=== PATIENT | male | born 1980 | race Caucasian/White ===

== ENCOUNTER 2016-12-20 12:27 | Inpatient (IN) | payer BC, OTHER ==
[~2016-12-20] VITALS: Ht 193 cm; Wt 90.7 kg
--- NOTE | 2016-12-20 14:30 | NUR ---
PRE ASSESSMENT Pt 36 y/o male in admission office. Pt came from home. Pt alert and oriented to name, place, and time. Perrla. skin warm and dry to touch. Respirations even and unlabored. Bilateral hand tremors noted slightly. Pt denies any history of sz. Pt was seen by MD. Skin clear. Pt able to sign consent. Explained unit rules to pt with acknowledgement. VS wnl se=926/76 p=98 t=98.0 r=18 o2=97%@ra and with no c/o pain noted.
[2016-12-20] MEDS ORDERED: MAGNESIUM HYDROXIDE 30 ML LIQUID UDC PO PRN (14:45)
[2016-12-20] MEDS ORDERED: diphenhydrAMINE 50 MG CAPSULE PO PRN (14:45)
[2016-12-20] MEDS ORDERED: LOPERAMIDE HCL 2 MG CAPSULE PO PRN ×2 (14:45)
[2016-12-20] MEDS ORDERED: ONDANSETRON 4 MG/2 ML VIAL IM PRN (14:45)
[2016-12-20] MEDS ORDERED: ACETAMINOPHEN 325 MG TABLET PO PRN (14:45)
[2016-12-20] MEDS ORDERED: LORAZEPAM 2 MG/1 ML VIAL IM PRN (14:45)
[2016-12-20] MEDS ORDERED: CLONIDINE HCL 0.1 MG TABLET PO PRN (14:45)
[2016-12-20] MEDS ORDERED: LORAZEPAM 1 MG TABLET PO PRN ×2 (14:45)
[2016-12-20] MEDS ORDERED: MAG HYDROX/AL HYDROX/SIMETH 30 ML LIQUID UDC PO PRN (14:45)
[2016-12-20] MEDS ORDERED: DICYCLOMINE HCL 20 MG TABLET PO PRN (14:45)
[2016-12-20] MEDS ORDERED: MIRALAX 17 GM POWD.PACK PO PRN (14:45)
--- NOTE | 2016-12-20 14:45 | NUR ---
ADMISSION Pt 36 y/o male admitted for etoh dependence. Pt came from home. Pt alert and oriented to name, place, and time. Perrla. skin warm and dry to touch. Respirations even and unlabored. Bilateral hand tremors noted slightly. Pt denies any history of sz. Pt was seen by . Skin clean with some callous on bilateral fingers noted. VS wnl gb=248/76 p=98 t=98.0 r=18 o2=97%@ra and with no c/o pain noted. Oriented pt to room and unit. Bed on lowest position with side rails x2 up for safety. Call light within reach. No distress noted at this time. Initial ciwa=3. substance history - ETOH vodka ( mixed) oral 5glasses daily x1 year. Last drink 12/19/16 and had 5 glasses. total 17 years - marijuana smokes and uses occassionally twice a month. Last use 11/26/16 and smoked once. medical history PTSD , HTN, and pt denies any sz history treatment history Pt denies any treatment history.
[2016-12-20] MEDS ORDERED: THIAMINE HCL 200 MG/2 ML VIAL IM ONE (16:00)
[2016-12-20] MEDS: ONDANSETRON ODT 4 MG TAB.RAPDIS SL PRN (16:02)
--- NOTE | 2016-12-20 16:12 | NUR ---
PRN Pt states feels nauseous. Zofran ODT prn per MD order given and tolerated well.
--- NOTE | 2016-12-20 16:13 | NUR ---
PRN Pt states has stomach cramps. Bentyl po prn per MD order given and tolerated well.
[2016-12-20 16:29] LABS: *AMPHETAMINE, URINE NEGATIVE (NEGATIVE); *BARBITURATE, URINE NEGATIVE (NEGATIVE); *CANNABINOID, URINE POSITIVE (NEGATIVE); *COCCAINE, URINE NEGATIVE (NEGATIVE); *OPIATE, URINE NEGATIVE (NEGATIVE); *PHENCYCLIDINE SCREEN,URINE NEGATIVE (NEGATIVE)
[2016-12-20 17:00] VITALS: BP 116/96
--- NOTE | 2016-12-20 17:12 | NUR ---
PRN EVAL Pt states does not feel nauseated at this time.
--- NOTE | 2016-12-20 17:13 | NUR ---
PRN Pt states does not have stomach cramps. Addendum: 12/20/16 at 1739 by VEGA LAZO RN title correction PRAda DUMONT
[2016-12-20 17:47] LABS: EOSINOPHILS % (AUTO) 1.5 % (0.0-7.0); HEMATOCRIT 25.2 % (40-50); HEMOGLOBIN 8.3 G/DL (14.0-18.0); LYMPHOCYTES % (AUTO) 21.6 % (20.5-51.5); MEAN CORPUSCULAR HEMOGLOBIN 33.7 UUG (27.0-31.0); MEAN CORPUSCULAR HGB CONC 33 g/dL (32.0-37.0); MEAN CORPUSCULAR VOLUME 101.9 FL (82.0-92.0); MONOCYTES % (AUTO) 17.5 % (0.0-11.0); NEUTROPHILS % (AUTO) 58.7 % (38.5-71.5); PLATELET COUNT (AUTO) 79 K/UL (150-450); WHITE BLOOD COUNT (AUTO) 6.2 K/UL (4.0-11.2)
[2016-12-20 17:48] LABS: BASOPHILS % (AUTO) 0.7 % (0.0-2.0); EOSINOPHILS # (AUTO) 0.1 K/uL (0.0-0.7); LYMPHOCYTES # (AUTO) 1.3 K/UL (0.8-4.8); MONOCYTES # (AUTO) 1.1 K/UL (0.1-1.30); NEUTROPHILS # (AUTO) 3.7 K/UL (1.8-8.9)
[2016-12-20 17:50] LABS: RED BLOOD CELL COUNT(AUTO) 2.47 MIL/UL (4.7-6.1)
--- NOTE | 2016-12-20 17:51 | NUR ---
DIMA Vidales from lab called with result RBC=2.47. aware.
[2016-12-20 17:53] LABS: BILIRUBIN,TOTAL 4.4 mg/dL (0.2-1.0); CREATININE 0.8 mg/dL (0.6-1.3); MAGNESIUM 1.5 mg/dL (1.8-2.4); POTASSIUM 3.3 mmol/L (3.5-5.1); TOTAL PROTEIN, SERUM 7.5 g/dL (6.4-8.2)
--- NOTE | 2016-12-20 17:55 | NUR ---
LAB French Herrera from lab called with result etoh 0.15%. aware.
[2016-12-20] MEDS ORDERED: POTASSIUM CHLORIDE 20 MEQ TAB.PRT.SR PO ONE (18:00)
[2016-12-20] MEDS ORDERED: MAGNESIUM OXIDE 400 MG TABLET PO ONE (18:00)
[2016-12-20 18:39] LABS: LYMPHOCYTES % (MANUAL) 20 % (20-40); MONOCYTES % (MANUAL) 13 % (2-10); NEUTROPHILS % (MANUAL) 67 % (42-75)
--- NOTE | 2016-12-20 18:43 | NUR ---
END OF SHIFT Pt 36 y/o male admitted for etoh dependence. Pt alert and oriented to name, place, and time. Perrla. Skin warm and dry to touch. Respirations even and unlabored. Bilateral hand tremors noted. Pt observed mostly isolative to room this afternoon. Pt was seen by MD today. Pt medication complaint and tolerated well. No ASE noted. Bed on lowest position with side rails x2 up for safety. Call light within reach. No distress noted at this time.
--- NOTE | 2016-12-20 19:30 | NUR ---
Start of shift Patient is a 36 year old male admitted for ETOH detox today. Patient is a full code on a pescatarian diet, with seasonal allergies. Patient is on fall and seizure precautions. He has past medical history of PTSD, HTN, Portal HTN, TIPS surgery in 2016. Patient is being started on a 4 day Ativan taper. Patient last CIWA 3 at 1600. At change of shift patient in room lying in bed. Stating he is feeling down. Denies SI or HI. Worried regarding physical health. Patient denies current physical complaints or pain. Safety measures in place, call light within good reach. Will continue to monitor.
[2016-12-20 20:00] VITALS: BP 113/60
[2016-12-20] MEDS ORDERED: LORAZEPAM 1 MG TABLET PO SCH (21:00)
[2016-12-21] VITALS: BP 117/75
[2016-12-21 04:00] VITALS: BP 123/71
--- NOTE | 2016-12-21 04:00 | NUR ---
CIWA DEFERRED PATIENT CIWA DEFERRED AT 0400 DUE TO SLEEP
--- NOTE | 2016-12-21 06:57 | NUR ---
End of shift Patient is a 36 year old male admitted for ETOH detox on 12-20-16. Patient is a full code and on a pescatarian diet, he has seasonal allergies. Patient is on fall and seizure precautions. He has past medical history of PTSD, HTN, Portal HTN, and TIPS surgery in 2016. Patient is on a 4 day Ativan taper. Patient was noted to be withdrawn and in room for all of shift. Patient worried about physical health concerns, mainly his liver. Stating he and the MD discussed some serious liver issues yesterday. Denies SI or HI. Vital signs at 2000 BP 113/60, P 68, R 16, SPO2 97% on RA, T 97.8 CIWA 8. VS at 0000 BP 117/75, P 78, R 16, SPO2 97% on RA, 98.6. CIWA 4. VS at 0400 BP 123/71, P 74, R 14, SPO2 97% on RA, T 97.7. CIWA deferred. Intake 850 ml. output 1 void. Slept a total of 8 hours. Safety measures in place, call light within good reach. Will continue to monitor. Report given to AM nurse.
--- NOTE | 2016-12-21 07:30 | NUR ---
START OF SHIFT Pt 36 y/o male admitted for etoh dependence. Pt received in room on bed with eyes closed resting, but easily arousable to name. Pt alert and oriented to name, place, and time. Perrla. Skin warm and dry to touch. Respirations even and unlabored. Bilateral hand tremors noted. It was reported that pt slept for 8 hours last night. Bed on lowest position with side rails x2 up for safety. Call light within reach. No distress noted at this time.
[2016-12-21 08:00] VITALS: BP 119/77
[2016-12-21] MEDS: FOLIC ACID 1 MG TABLET PO SCH (08:18)
[2016-12-21] MEDS: THIAMINE HCL 100 MG TABLET PO SCH (08:18)
[2016-12-21] MEDS: ONDANSETRON ODT 4 MG TAB.RAPDIS SL PRN (08:18)
[2016-12-21] MEDS: MULTIVITAMINS,THERAPEUTIC TABLET PO SCH (08:18)
[2016-12-21] MEDS: LORAZEPAM 1 MG TABLET PO SCH ×3 (08:18→21:13)
--- NOTE | 2016-12-21 08:18 | NUR ---
PRN Pt states feels nauseous. Zofran odt prn per MD order given and tolerated well.
[2016-12-21 08:21] LABS: BASOPHILS # (AUTO) 0.1 K/uL (0.0-8.0); BASOPHILS % (AUTO) 0.7 % (0.0-2.0); EOSINOPHILS # (AUTO) 0.1 K/uL (0.0-0.7); EOSINOPHILS % (AUTO) 1.3 % (0.0-7.0); HEMATOCRIT 25.2 % (40-50); HEMOGLOBIN 8.7 G/DL (14.0-18.0); LYMPHOCYTES # (AUTO) 1.2 K/UL (0.8-4.8); LYMPHOCYTES % (AUTO) 16.7 % (20.5-51.5); MEAN CORPUSCULAR HEMOGLOBIN 35.2 UUG (27.0-31.0); MEAN CORPUSCULAR HGB CONC 35 g/dL (32.0-37.0); NEUTROPHILS # (AUTO) 4.8 K/UL (1.8-8.9); NEUTROPHILS % (AUTO) 67.3 % (38.5-71.5); PLATELET COUNT (AUTO) 74 K/UL (150-450); WHITE BLOOD COUNT (AUTO) 7.2 K/UL (4.0-11.2)
[2016-12-21 08:22] LABS: BILIRUBIN,DIRECT 2.7 mg/dL (0.0-0.2); BILIRUBIN,TOTAL 5.3 mg/dL (0.2-1.0); CREATININE 0.8 mg/dL (0.6-1.3); MAGNESIUM 1.4 mg/dL (1.8-2.4); PHOSPHOROUS 2.8 mg/dL (2.5-4.9); POTASSIUM 4.5 mmol/L (3.5-5.1); TOTAL PROTEIN, SERUM 7.4 g/dL (6.4-8.2)
--- NOTE | 2016-12-21 08:23 | NUR ---
LAB Kiara Le from lab called with results: RBC=2.47. aware.
[2016-12-21 08:26] LABS: RED BLOOD CELL COUNT(AUTO) 2.47 MIL/UL (4.7-6.1)
[2016-12-21] MEDS ORDERED: INFLUENZA VACCINE 2017-2018 0.5 ML DISP.SYRIN IM ONE (09:00)
[2016-12-21] MEDS ORDERED: TUBERCULIN,PURIF.PROT.DERIV. 5 TU/0.1 ML TEST ID ONE (09:00)
[2016-12-21 09:03] LABS: BAND % (MANUAL) 4 % (0-10); EOSINOPHILS % (MANUAL) 2 % (0-8); LYMPHOCYTES % (MANUAL) 17 % (20-40); MONOCYTES % (MANUAL) 13 % (2-10); NEUTROPHILS % (MANUAL) 64 % (42-75)
--- NOTE | 2016-12-21 09:18 | NUR ---
PRN EVAL Pt denies any nausea at this time.
[2016-12-21] MEDS ORDERED: NEBI20TA2 PO (10:10)
[2016-12-21] MEDS ORDERED: ESCI20TA PO (10:10)
[2016-12-21 12:00] VITALS: BP 126/71
[2016-12-21] MEDS ORDERED: hydrALAZINE HCL 50 MG TABLET PO PRN (12:00)
[2016-12-21] MEDS: MAGNESIUM OXIDE 400 MG TABLET PO SCH ×2 (12:38→21:12)
--- NOTE | 2016-12-21 12:50 | NUR ---
therapist prompted client to attend group today, client agreed to attend.
[2016-12-21] MEDS: ESCITALOPRAM OXALATE 10 MG TABLET PO SCH (16:35)
[2016-12-21 16:51] VITALS: BP 108/65
[2016-12-21] MEDS: IBUPROFEN 400 MG TABLET PO PRN (19:07)
--- NOTE | 2016-12-21 19:07 | NUR ---
PRN MEDICATION Patient with complaints of headache 4 out of 10. Ibuprofen 400 mg PO administered at 1907. effect pending. T 99.0 BP 122/74, P 83, R 18, SPO2 97% on RA.
--- NOTE | 2016-12-21 19:24 | NUR ---
Start of shift Patient is a 36 year old male admitted for ETOH detox 12-20-16. Patient is a full code on a pescatarian diet, with seasonal allergies. Patient is on fall and seizure precautions. He has past medical history of PTSD, HTN, Portal HTN, TIPS surgery. Patient is on a 4 day Ativan taper. Patient last CIWA 5 at 1600. At change of shift patient in room lying in bed. Stating he has a headache of a 4 out of 10. Ibuprofen 400mg po PRN administered with effect pending. temp 99.0. Encouraged increased fluids. Denies SI or HI. Safety measures in place, 2 padded side rails up. Bed locked and in lowest position. call light within good reach. Will continue to monitor.
[2016-12-21 20:00] VITALS: BP 122/74
--- NOTE | 2016-12-21 20:31 | NUR ---
Reassessment of patient one hour after administration of PRN ibuprofen 400 mg for headache. Patient with 0 out of 10 pain. T 98.7. Ibuprofen effective.
[2016-12-21] MEDS: PROPRANOLOL HCL 20 MG TABLET PO SCH (21:13)
[2016-12-22] VITALS (7 sets, daily range): BP systolic 116–125; BP diastolic 67–78
--- NOTE | 2016-12-22 04:10 | NUR ---
WA deferred Patient asleep at 0400 [facility] deferred.
--- NOTE | 2016-12-22 06:55 | NUR ---
End of shift Patient is a 36 year old male admitted for ETOH Detox 12-20-16. Patient is a full code on a pescatarian diet, with seasonal allergies. Patient is on fall and seizure precautions. He has past medical history of PTSD, HTN, Portal HTN, TIPS surgery. Patient is on a 4 day Ativan taper. VS: 2000 BP 122/74, P 83, T 99.0, R 18, SPO2 97% on RA. CIWA 7. VS at 0000 BP 120/72, P 77, R 18, SPO2 98% on RA, T 98.6. CIWA 7. VS at 0400 BP 120/69, P 78, SPO2 94% on RA, R 16, T 98.0. CIWA deferred. Patient woke up at 0600 and came to nurses station asking for "bystolic". Patient reported dizziness. Patient states he woke up feeling this way. Gait steady, Vital signs assessed. BP 123/76, P 80, R 18, SPO2 98% on RA, T 98.0 CIWA 13. Charge nurse notified. Patient directed to remain in bed and to get up slowly. No noted falls, nausea or vomiting noted. Tolerating fluids well. Patient is alert and oriented x 4. Intake 1203 ml. Output 3 voids. Slept total of 6 hours. Safety measures in place, 2 padded side rails up. Bed locked and in lowest position. call light within good reach. Will continue to monitor. Report to AM nurse
--- NOTE | 2016-12-22 07:30 | NUR ---
START OF SHIFT NOTE Received report from night nurse, 36 year old male admitted for ETOH dependence. Pt has PMH of PTSD, HTN, Appendectomy. Pt cont on Ativan taper tolerating well. Per endorsement pt received PRN Motrin for headache effective pr night nurse, pt slept for 5 hours. Patient received awake, alert and oriented x4, Educated patient regarding plan of care for the day and medication regimen with good verbal understanding. Safety measures in place. call light with in reach, will continue to monitor.
[2016-12-22 07:50] LABS: BILIRUBIN,DIRECT 3.4 mg/dL (0.0-0.2); BILIRUBIN,TOTAL 6.5 mg/dL (0.2-1.0); CREATININE 0.9 mg/dL (0.6-1.3); MAGNESIUM 1.6 mg/dL (1.8-2.4); PHOSPHOROUS 2.9 mg/dL (2.5-4.9); POTASSIUM 4.3 mmol/L (3.5-5.1); TOTAL PROTEIN, SERUM 7.4 g/dL (6.4-8.2)
[2016-12-22 07:52] LABS: BASOPHILS % (AUTO) 0.6 % (0.0-2.0); EOSINOPHILS # (AUTO) 0.1 K/uL (0.0-0.7); EOSINOPHILS % (AUTO) 1.5 % (0.0-7.0); HEMATOCRIT 24.6 % (40-50); HEMOGLOBIN 8.3 G/DL (14.0-18.0); MEAN CORPUSCULAR HEMOGLOBIN 34.3 UUG (27.0-31.0); MEAN CORPUSCULAR HGB CONC 34 g/dL (32.0-37.0); MEAN CORPUSCULAR VOLUME 101.7 FL (82.0-92.0); MONOCYTES # (AUTO) 0.7 K/UL (0.1-1.30); NEUTROPHILS # (AUTO) 4.8 K/UL (1.8-8.9); NEUTROPHILS % (AUTO) 72.9 % (38.5-71.5); PLATELET COUNT (AUTO) 78 K/UL (150-450); WHITE BLOOD COUNT (AUTO) 6.6 K/UL (4.0-11.2)
[2016-12-22 07:58] LABS: RED BLOOD CELL COUNT(AUTO) 2.42 MIL/UL (4.7-6.1)
--- NOTE | 2016-12-22 08:00 | NUR ---
LAB RESULTS Received call from Lab talked to Nay Fox with results: RBC=2.42. aware NNO at this time.
[2016-12-22 08:20] LABS: BAND % (MANUAL) 10 % (0-10); EOSINOPHILS % (MANUAL) 2 % (0-8); LYMPHOCYTES % (MANUAL) 16 % (20-40); MONOCYTES % (MANUAL) 9 % (2-10); NEUTROPHILS % (MANUAL) 63 % (42-75)
[2016-12-22] MEDS: MULTIVITAMINS,THERAPEUTIC TABLET PO SCH (08:43)
[2016-12-22] MEDS: PROPRANOLOL HCL 20 MG TABLET PO SCH ×2 (08:44→20:37)
[2016-12-22] MEDS: ESCITALOPRAM OXALATE 10 MG TABLET PO SCH (08:44)
[2016-12-22] MEDS: FOLIC ACID 1 MG TABLET PO SCH (08:44)
[2016-12-22] MEDS: LORAZEPAM 1 MG TABLET PO SCH ×3 (08:44→20:39)
[2016-12-22] MEDS: THIAMINE HCL 100 MG TABLET PO SCH (08:44)
[2016-12-22 11:06] LABS: HEPATITIS B SURFACE AG Negative (Negative)
--- NOTE | 2016-12-22 14:49 | NUR ---
Therapist prompted client to attend group today. Client agreed to attend.
[2016-12-22] MEDS ORDERED: LACTULOSE 20 G/30 ML LIQUID UDC PO ONE (15:00)
[2016-12-22] MEDS: MAGNESIUM OXIDE 400 MG TABLET PO SCH ×2 (15:02→20:40)
--- NOTE | 2016-12-22 19:08 | NUR ---
END OF SHIFT NOTE Patient is alert oriented x4. Patient is a 36 year old male admitted ETOH dependence. Patient was placed on 5 day Ativan taper tolerating well. Patient has PMH of PTSD, HTN, Appendectomy. Patient did not received any PRN during shift. Patient was seen by Dr. Paz with new order of Lactulose 20ml Po and magnesium level was Low 1.6 new order of Mag-ox 800mg Po medications were given as ordered tolerated well. Vital signs remained WNL. Patient remained compliant with treatment plan and medication regime. Medications were effective in reducing withdrawal symptoms. All safety measures in place, Call light within reach. Patient endorsed to night nurse in stable condition.
--- NOTE | 2016-12-22 20:00 | NUR ---
START OF SHIFT NOTE RECEIVED REPORT FROM DAY SHIFT NURSE. PATIENT IS A 36 YEAR OLD MALE ADMITTED FOR ETOH DEPENDENCE. PATIENT IS ON 4 DAY ATIVAN TAPER. PATIENT IS PESCATARIAN AND HAS SEASONAL ALLERGY. PATIENT REPORTS PMH OF PTSD,HTN,PORTAL HTN, TIPS (2016), APPENDECTOMY AND NO SEIZURE HISTORY. MAGNESIUM 1.6 -WAS REPLACED. PATIENT WAS GIVEN ONE TIME LACTULOSE. PATIENT DID NOT REQUIRE ANY PRN MEDICATION. LAST CIWA 4. RECEIVED PATIENT IN HIS ROOM. ALERT AND ORIENTED TO NAME, PLACE AND TIME. PATIENT REPORTS ANXIETY , SWEATING, NO N/V, DENIES ANY PAIN. PATIENT STATES HE ATTENDED ALL GROUPS EXCEPT THE LAST ONE. GOOD APPETITE AND DRINKING FLUIDS WELL. ON FALL/SEIZURE PRECAUTION. SAFETY MEASURES IN PLACE. CALL LIGHT IN REACH. WILL CONTINUE TO MONITOR
[2016-12-22] MEDS: LACTULOSE 20 G/30 ML LIQUID UDC PO SCH (20:39)
--- NOTE | 2016-12-22 21:19 | NUR ---
PRN BENADRYL ADMINISTRATION PATIENT REQUESTS FOR SLEEP AID. PRN BENADRYL GIVEN. WILL MONITOR EFFECTIVENESS
--- NOTE | 2016-12-22 22:45 | NUR ---
GIOVANNA SLADE RE-ASSESSMENT PATIENT ASLEEP AT THIS TIME. RESPIRATION EVEN AND UNLABORED. SAFETY MEASURES IN PLACE. CALL LIGHT IN REACH. WILL CONTINUE TO MONITOR
--- NOTE | 2016-12-23 | NUR ---
CIWA DEFERRED PATIENT SLEEPING. CIWA DEFERRED. VS REFUSED. RESPIRATION EVEN AND UNLABORED. SAFETY MEASURES IN PLACE. CALL LIGHT IN REACH. WILL CONTINUE TO MONITOR
--- NOTE | 2016-12-23 04:00 | NUR ---
CIWA DEFERRED PATIENT SLEEPING. CIWA DEFERRED. VS REFUSED. RESPIRATION EVEN AND UNLABORED. SAFETY MEASURES IN PLACE. CALL LIGHT IN REACH. WILL CONTINUE TO MONITOR
[2016-12-23 06:57] LABS: BASOPHILS % (AUTO) 0.5 % (0.0-2.0); EOSINOPHILS # (AUTO) 0.1 K/uL (0.0-0.7); EOSINOPHILS % (AUTO) 1.3 % (0.0-7.0); HEMATOCRIT 26.8 % (40-50); HEMOGLOBIN 9.2 G/DL (14.0-18.0); LYMPHOCYTES # (AUTO) 1.6 K/UL (0.8-4.8); LYMPHOCYTES % (AUTO) 17.9 % (20.5-51.5); MEAN CORPUSCULAR HEMOGLOBIN 35.1 UUG (27.0-31.0); MEAN CORPUSCULAR HGB CONC 34 g/dL (32.0-37.0); MEAN CORPUSCULAR VOLUME 101.9 FL (82.0-92.0); MONOCYTES # (AUTO) 0.8 K/UL (0.1-1.30); MONOCYTES % (AUTO) 9.7 % (0.0-11.0); NEUTROPHILS # (AUTO) 6.3 K/UL (1.8-8.9); NEUTROPHILS % (AUTO) 70.6 % (38.5-71.5); PLATELET COUNT (AUTO) 100 K/UL (150-450); RED BLOOD CELL COUNT(AUTO) 2.63 MIL/UL (4.7-6.1); WHITE BLOOD COUNT (AUTO) 8.8 K/UL (4.0-11.2)
--- NOTE | 2016-12-23 07:03 | NUR ---
END OF SHIFT NOTE PATIENT IS A 36 YEAR OLD MALE ADMITTED FOR ETOH DEPENDENCE. PATIENT IS ON 4 DAY ATIVAN TAPER, TOLERATED WELL. PATIENT IS PESCATARIAN AND HAS SEASONAL ALLERGY. PATIENT REPORTS PMH OF PTSD,HTN,PORTAL HTN, TIPS (2016), APPENDECTOMY AND NO SEIZURE HISTORY. PATIENT REPORTED ANXIETY , SWEATING, NO N/V, DENIES ANY PAIN BEGINNING OF SHIFT. PATIENT STATES HE ATTENDED ALL GROUPS EXCEPT THE LAST ONE. GOOD APPETITE AND DRINKING FLUIDS WELL. PATIENT NOTED WITH EPISODE OF CONFUSION. PATIENT WAS REDIRECTED AND REALITY ORIENTATION PROVIDED. DR. PATEL AWARE. LABS WERE ALREADY ORDERED TODAY. PATIENT ON FALL/SEIZURE PRECAUTION. SAFETY MEASURES IN PLACE. CALL LIGHT IN REACH. WILL CONTINUE TO MONITOR . SLEPT 6 HOURS. FLUID INTAKE 1,128 ML. VOIDED X 3. NO BM . LAST CIWA 5 .
[2016-12-23 07:05] LABS: BILIRUBIN,DIRECT 3.9 mg/dL (0.0-0.2); BILIRUBIN,TOTAL 7.5 mg/dL (0.2-1.0); CREATININE 0.8 mg/dL (0.6-1.3); MAGNESIUM 1.7 mg/dL (1.8-2.4); PHOSPHOROUS 4.2 mg/dL (2.5-4.9); TOTAL PROTEIN, SERUM 7.9 g/dL (6.4-8.2)
--- NOTE | 2016-12-23 07:36 | NUR ---
START OF SHIFT NOTE Received report from night nurse, 36 year old male admitted for ETOH dependence. Pt has PMH of PTSD, HTN, Appendectomy. Pt cont on Ativan taper tolerating well. Per endorsement pt received PRN Benadryl for sleep effective per night nurse, pt slept for 6 hours. Patient received awake, alert and oriented x4, Educated patient regarding plan of care for the day and medication regimen with good verbal understanding. Safety measures in place. call light with in reach, will continue to monitor.
[2016-12-23 08:00] VITALS: BP 119/69
[2016-12-23] MEDS: THIAMINE HCL 100 MG TABLET PO SCH (08:27)
[2016-12-23] MEDS: MULTIVITAMINS,THERAPEUTIC TABLET PO SCH (08:27)
[2016-12-23] MEDS: FOLIC ACID 1 MG TABLET PO SCH (08:27)
[2016-12-23] MEDS: MAGNESIUM OXIDE 400 MG TABLET PO SCH (08:27)
[2016-12-23] MEDS: ESCITALOPRAM OXALATE 10 MG TABLET PO SCH (08:27)
[2016-12-23] MEDS: LORAZEPAM 1 MG TABLET PO SCH ×2 (08:27→20:08)
[2016-12-23] MEDS: LACTULOSE 20 G/30 ML LIQUID UDC PO SCH ×3 (08:28→20:08)
[2016-12-23] MEDS: PROPRANOLOL HCL 20 MG TABLET PO SCH ×2 (08:28→20:30)
[2016-12-23 12:00] VITALS: BP 110/63
[2016-12-23] MEDS ORDERED: MAGNESIUM OXIDE 400 MG TABLET PO ONE (15:00)
[2016-12-23 16:00] VITALS: BP 112/60
--- NOTE | 2016-12-23 19:16 | NUR ---
END OF SHIFT NOTE Patient is alert oriented x4. Patient is a 36 year old male admitted ETOH dependence. Patient was placed on 5 day Ativan taper tolerating well. Patient has PMH of PTSD, HTN, Appendectomy. Patient did not received any PRN during shift. Vital signs remained WNL. Patient remained compliant with treatment plan and medication regime. Medications were effective in reducing withdrawal symptoms. Last CIWA score noted 3, at 1600. All safety measures in place, Call light within reach. Patient endorsed to night nurse in stable condition.
[2016-12-23 20:00] VITALS: BP 106/60
--- NOTE | 2016-12-23 20:00 | NUR ---
START OF SHIFT NOTE RECEIVED REPORT FROM DAY SHIFT NURSE. PATIENT IS A 36 YEAR OLD MALE ADMITTED FOR ETOH DEPENDENCE. PATIENT CONTINUE ON ATIVAN TAPER, TOLERATED WELL.NO ADVERSE REACTION. PATIENT COMPLIANT WITH MEDICATION AND TREATMENT PLAN. PATIENT DID NOT REQUIRE ANY PRN MEDICATION . LAST CIWA 3. ON FALL/SEIZURE PRECAUTION. PATIENT'S VS WNL. RECEIVED PATIENT IN ROOM. PATIENT ALERT AND ORIENTED X 3. RESPIRATION EVEN AND UNLABORED. PATIENT DENIES ANY PAIN. NO N/V. PATIENT STATES MEDICATION ARE EFFECTIVE IN CONTROLLING HIS WITHDRAWAL SYMPTOMS. SAFETY MEASURES IN PLACE. CALL LIGHT IN REACH. WILL CONTINUE TO MONITOR
[2016-12-23] MEDS: IBUPROFEN 400 MG TABLET PO PRN (20:08)
--- NOTE | 2016-12-23 20:08 | NUR ---
PRN MOTRIN ADMINISTRATION PATIENT C/O BOTH LEGS PAIN 5/10. PRN MOTRIN GIVEN. WILL MONITOR FOR EFFECTIVENESS
--- NOTE | 2016-12-23 21:00 | NUR ---
INDERAL HELD INDERAL HELD DUE TO PATIENT'S BP-106/60 P-71. INDERAL WITH ORDER TO HOLD IF BP IS <100/70 HR-70
--- NOTE | 2016-12-23 21:08 | NUR ---
PRN MOTRIN RE-ASSESSMENT PATIENT STATES MOTRIN IS HELPFUL AND EFFECTIVE. NO PAIN AT THIS TIME. WILL CONTINUE TO MONITOR
[2016-12-24] VITALS: BP 110/68
--- NOTE | 2016-12-24 | NUR ---
CIWA DEFERRED PATIENT SLEEPING. CIWA DEFERRED. RESPIRATION EVEN AND UNLABORED. SAFETY MEASURES IN PLACE. CALL LIGHT IN REACH. WILL CONTINUE TO MONITOR
[2016-12-24 04:00] VITALS: BP 110/60
--- NOTE | 2016-12-24 04:00 | NUR ---
CIWA DEFERRED PATIENT SLEEPING. CIWA DEFERRED. RESPIRATION EVEN AND UNLABORED. SAFETY MEASURES IN PLACE. CALL LIGHT IN REACH. WILL CONTINUE TO MONITOR
--- NOTE | 2016-12-24 07:09 | NUR ---
END OF SHIFT NOTE PATIENT IS A 36 YEAR OLD MALE ADMITTED FOR ETOH DEPENDENCE. PATIENT CONTINUE ON ATIVAN TAPER, TOLERATED WELL. NO ADVERSE REACTION. PATIENT COMPLIANT WITH MEDICATION AND TREATMENT PLAN. PATIENT DID NOT REQUIRE ANY PRN MEDICATION DURING SHIFT. IN HIS ROOM MOST OF THE SHIFT. PATIENT STATES MEDICATIONS ARE EFFECTIVE IN CONTROLLING HIS WITHDRAWAL SYMPTOMS. ON FALL/SEIZURE PRECAUTION. SAFETY MEASURES IN PLACE. CALL LIGHT IN REACH. WILL CONTINUE TO MONITOR. SLEPT 10 HOURS. FLUID 355 INTAKE ML. VOIDED X 1. NO BM. LAST CIWA 5 .
--- NOTE | 2016-12-24 07:34 | NUR ---
START OF SHIFT NOTE Received report from night nurse, 36 year old male admitted for ETOH dependence. Pt has PMH of PTSD, HTN, Appendectomy. Pt cont on Ativan taper tolerating well. Per endorsement pt received PRN Motrin for pain effective per night nurse, pt slept for 10 hours, Last CIWA was 5. Patient received awake, alert and oriented x4, Educated patient regarding plan of care for the day and medication regimen with good verbal understanding. Safety measures in place. call light with in reach, will continue to monitor.
[2016-12-24 08:00] VITALS: BP 99/63
[2016-12-24] MEDS: THIAMINE HCL 100 MG TABLET PO SCH (08:18)
[2016-12-24] MEDS: FOLIC ACID 1 MG TABLET PO SCH (08:18)
[2016-12-24] MEDS: MULTIVITAMINS,THERAPEUTIC TABLET PO SCH (08:18)
[2016-12-24] MEDS: MAGNESIUM OXIDE 400 MG TABLET PO SCH (08:19)
[2016-12-24] MEDS: ESCITALOPRAM OXALATE 10 MG TABLET PO SCH (08:19)
[2016-12-24] MEDS: LACTULOSE 20 G/30 ML LIQUID UDC PO SCH ×3 (08:19→20:22)
[2016-12-24] MEDS: PROPRANOLOL HCL 20 MG TABLET PO SCH ×2 (08:24→20:24)
[2016-12-24] MEDS ORDERED: LORAZEPAM 1 MG TABLET PO SCH (09:00)
[2016-12-24 12:00] VITALS: BP 106/60
[2016-12-24] MEDS ORDERED: RIFAXIMIN 550 MG TABLET PO ONE (12:00)
[2016-12-24] MEDS ORDERED: PROP20TA22 PO (13:36)
[2016-12-24] MEDS ORDERED: Magnesium Oxide PO (13:36)
[2016-12-24] MEDS ORDERED: THIA100T13 PO (13:36)
[2016-12-24] MEDS ORDERED: FOLI1TAB16 PO (13:36)
[2016-12-24] MEDS ORDERED: RIFA550T PO (13:36)
[2016-12-24] MEDS ORDERED: LACT10SO7 PO (13:36)
[2016-12-24] MEDS ORDERED: MULT-24 PO (13:36)
[2016-12-24 16:00] VITALS: BP 112/58
--- NOTE | 2016-12-24 18:54 | NUR ---
END OF SHIFT NOTE Patient is alert oriented x4. Patient is a 36 year old male admitted ETOH dependence. Patient completed 5 day Ativan taper tolerated well. Patient has PMH of PTSD, HTN, Appendectomy. Patient did not received any PRN during shift. Vital signs remained WNL. Patient remained compliant with treatment plan and medication regime. Patient was seen by with new order of Xifaxan, medication administered as ordered tolerated well. Patient scheduled for discharge in AM. Medications were effective in reducing withdrawal symptoms.Last CIWA score noted 3, at 1600. All safety measures in place, Call light within reach. Patient endorsed to night nurse in stable condition.
--- NOTE | 2016-12-24 19:30 | NUR ---
START OF SHIFT Pt is a 36 y/o male admitted on 12/20/16 for ETOH dependence. Pt was dependent on 5 glasses of mixed vodka for one year. Pt is full code, has only seasonal allergies, pescetarian diet, and seizure/fall precaution. No reported seizure hx. Pt reports PMH of PTSD and HTN. Pt was on a 4 day Ativan taper, started on 12/21/16, last dose today. Pt is scheduled to be discharged tomorrow. Upon assessment pt laying in bed watching TV and presents with dizziness and anxiety. No PRNs administered during day shift. Respirations 16, even and unlabored. Denies N/V/D. Denies chest pain or SOB. Medications due. Safety measures in place. Call light within reach. Will continue to monitor.
[2016-12-24 20:00] VITALS: BP 102/54
[2016-12-24] MEDS: RIFAXIMIN 550 MG TABLET PO SCH (20:22)
--- NOTE | 2016-12-24 21:00 | NUR ---
SCHEDULED PROPANOLOL HELD BP 102/54, orders to hold if BP < 100/[address] Call light within reach. Will continue to monitor. Addendum: 12/24/16 at 2110 by CHRISTIANO JONES RN HR 68, orders also to hold if HR <70
--- NOTE | 2016-12-25 | NUR ---
VITALS REFUSED AND CIWA DEFERRED Pt is laying in bed with eyes closed. Pt refused vitals. CIWA deferred, to be assessed when pt is fully awake per order. Respirations 16, even and unlabored. Safety measures in place. Call light within reach. Will continue to monitor.
--- NOTE | 2016-12-25 07:13 | NUR ---
START OF SHIFT Pt is a 36 y/o male admitted on 12/20/16 for ETOH dependence. Pt was dependent on 5 glasses of mixed vodka for one year. Pt is full code, has only seasonal allergies, pescetarian diet, and seizure/fall precaution. No reported seizure hx. Pt reports PMH of PTSD and HTN. Pt was on a 4 day Ativan taper, started on 12/21/16, last dose 12/24/16. Pt is scheduled to be discharged today. Pt presented with dizziness and anxiety. Scheduled medications administered, effective in S/S of withdrawal as verbalized by pt. Last CIWA 1. No PRNs administered. Scheduled Propanolol held d/t BP 102/54, HR 68. Pt slept 8 hours. Intake 1250 ml, voids x 2, stool x 1. Safety measures in place. Call light within reach. Pts needs have been met. Endorsed to day shift nurse. Addendum: 12/25/16 at 0718 by CHRISTIANO JONES RN END OF SHIFT, NOT START OF SHIFT
--- NOTE | 2016-12-25 07:30 | NUR ---
START OF SHIFT Pt 36 y/o male admitted for etoh dependence. Pt received in room on bed with eyes closed resting, but easily arousable to name. Pt alert and oriented to name, place, and time. Perrla. Skin warm and dry to touch. Respirations even and unlabored. No bilateral hand tremors noted. It was reported that pt slept for 8 hours last night. Pt is scheduled to be discharged today. Bed on lowest position with side rails x2 up for safety. Call light within reach. No distress noted at this time.
[2016-12-25] MEDS: LACTULOSE 20 G/30 ML LIQUID UDC PO SCH (08:36)
[2016-12-25] MEDS: FOLIC ACID 1 MG TABLET PO SCH (08:36)
[2016-12-25] MEDS: ESCITALOPRAM OXALATE 10 MG TABLET PO SCH (08:36)
[2016-12-25] MEDS: MULTIVITAMINS,THERAPEUTIC TABLET PO SCH (08:36)
[2016-12-25] MEDS: MAGNESIUM OXIDE 400 MG TABLET PO SCH (08:36)
[2016-12-25] MEDS: THIAMINE HCL 100 MG TABLET PO SCH (08:36)
[2016-12-25] MEDS: RIFAXIMIN 550 MG TABLET PO SCH (08:36)
[2016-12-25 09:00] VITALS: BP 106/64
[2016-12-25] MEDS: PROPRANOLOL HCL 20 MG TABLET PO SCH (09:00)
--- NOTE | 2016-12-25 09:24 | NUR ---
DISCHARGED Pt 36 y/o male admited for etoh dependence. Pt discharged to [facility] via private transport. Pt alert and oriented to name, place, and time. Perrla. Skin warm and dry to touch. Respirations even and unlabored. Bilateral hand tremors noted very slightly. Pt excited about discharge. Pt with no home medications noted and clarrified with pt. No belongings in cabinet noted and clarified with pt. Discharge paperwork, belongings, and prescriptions packed in pt bag. VS wnl. No distress noted.
== END 2016-12-25 09:24 | disposition other institution (70) | DRG 895 ==
LOC: SRC 13:43
PROVIDERS: ADMIT Internal Medicine; ATTEND Internal Medicine
PROC: HZ2ZZZZ Detoxification Services for Substance Abuse Treatment (ICD-10-PCS; principal; 2016-12-20)
PROC: HZ41ZZZ Group Counseling for Substance Abuse Treatment, Behavioral (ICD-10-PCS; 2016-12-21)
DX: F10.230 Alcohol dependence with withdrawal, uncomplicated (principal); I85.10 Secondary esophageal varices without bleeding; D69.6 Thrombocytopenia, unspecified; F33.2 Major depressive disorder, recurrent severe without psychotic features; E83.42 Hypomagnesemia; E83.51 Hypocalcemia; K76.6 Portal hypertension; K70.30 Alcoholic cirrhosis of liver without ascites; G47.00 Insomnia, unspecified; K70.40 Alcoholic hepatic failure without coma; Y90.6 Blood alcohol level of 120-199 mg/100 ml; Z81.1 Family history of alcohol abuse and dependence; Z81.8 Family history of other mental and behavioral disorders; F43.10 Post-traumatic stress disorder, unspecified; F12.90 Cannabis use, unspecified, uncomplicated; E87.6 Hypokalemia; Z91.89 Other specified personal risk factors, not elsewhere classified; D53.9 Nutritional anemia, unspecified; I10 Essential (primary) hypertension; Z79.899 Other long term (current) drug therapy
CPT/HCPCS: 36415; 70030-TC; 80307; 80349; 83735; 84100; 85025; 85610; 86580; 86592; 86705; 86803; 87340; 87806; 90686; A4663; G0480; J3411; Q0162; Q0163